=== PATIENT | male | born 2000 | race Hispanic/Latino ===

== ENCOUNTER 2019-08-01 16:10 | Emergency (ER) | payer OTHER ==
[2019-08-01 16:33] VITALS: BP 142/92
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
== END 2019-08-01 20:51 | disposition left against medical advice (07) ==
LOC: ED 16:10
DX: M54.2 Cervicalgia (principal); Z53.21 Procedure and treatment not carried out due to patient leaving prior to being seen by health care provider
CPT/HCPCS: 72040; 72100